=== PATIENT | male | born 1990 | race Caucasian/White ===

== ENCOUNTER 2018-10-08 13:06 | Emergency (ER) | payer BC ==
[2018-10-08] MEDS ORDERED: Albuterol/Ipratropium 3.0-0.5 MG/3 ML Neb Soln NEB ONE (13:08)
--- NOTE | 2018-10-08 13:09 | EDM.PDOC ---
ED HPI GENERAL MEDICAL PROBLEM - General Stated Complaint: FLU Time Seen by Provider: 10/08/18 13:07 Source of Information: Reports: Patient History Limitations: Reports: No Limitations - History of Present Illness INITIAL COMMENTS - FREE TEXT/NARRATIVE: HISTORY AND PHYSICAL: History of present illness: Patient is a 28-year-old male who presents to emergency room today with complaints of shortness of breath, pain with inspiration, fever, sore throat, vomiting, and diarrhea. Patient states that the worst symptom is shortness of breath and he feels as if he cannot take a deep enough breath without pain. Patient does smoke about a half a pack a day for the past 3 years. Patient states all the symptoms started 2 or 3 days ago and are progressively worsening. Patient states he has not checked his temperature at home but does feel as if he has a fever. Patient states that today he has had 3 episodes of watery diarrhea. Patient states he's had intermittent vomiting but none today. Patient denies abdominal pain, diaphoresis, cough, or all other GI, , respiratory, or cardiovascular complaints. Patient denies any health history. Review of systems: As per history of present illness and below otherwise all systems reviewed and negative. Past medical history: As per history of present illness and as reviewed below otherwise noncontributory. Surgical history: As per history of present illness and as reviewed below otherwise noncontributory. Social history: See social history for further information Family history: As per history of present illness and as reviewed below otherwise noncontributory. Physical exam: General: Patient is alert, oriented, and in no acute distress. He is sitting comfortably on exam table. HEENT: Atraumatic, normocephalic, pupils equal and reactive bilaterally, negative for conjunctival pallor or scleral icterus, mucous membranes dry, TMs normal bilaterally, throat is severely erythematous with enlarged tonsils without exudate, neck supple, nontender, trachea midline. No drooling or trismus noted. No meningeal signs. No hot potato voice noted. Lungs: Lung sounds are greatly diminished due to patient's pain with inspiration , therefore, lung exam limited due to pain. Otherwise, clear to auscultation, breath sounds equal bilaterally, chest nontender. Heart: S1S2, regular rate and rhythm without overt murmur Abdomen: Soft, nondistended, nontender. Negative for masses or hepatosplenomegaly. Negative for costovertebral tenderness. Pelvis: Stable nontender. Genitourinary: Deferred. Rectal: Deferred. Skin: Intact, warm, dry. No lesions or rashes noted. Extremities: Atraumatic, negative for cords or calf pain. Neurovascular unremarkable. Neuro: Awake, alert, oriented. Cranial nerves II through XII unremarkable. Cerebellum unremarkable. Motor and sensory unremarkable throughout. Exam nonfocal. Notes: On exam, patient's throat is quite erythematous, difficult examination of the lungs due to pain, and patient is oxygen as slightly on room air (93%). EKG was taken immediately upon arrival at the ED. DuoNeb was ordered. Additional labs and xray performed. Fluids were started and Toradol given. Patient is continually monitored. Patient is positive for influenza A. Rest of labs are unremarkable. Patient was not able to provide a urine or stool sample today in the ED, however, he was provided with the equipment to do this at home and to bring back. Patient declines the urine. Supportive care measures were reviewed and discussed. Voices understanding and is agreeable to plan of care. Denies any further questions or concerns at this time. Diagnostics: CBC, CMP, UA, stool studies, EKG, influenza, strep and chest x-ray. Therapeutics: Saline, Toradol, DuoNeb Prescription: phenergan with codeine, tamiflu, proair Impression: 1. Influenza A Plan: 1. Standard contact precautions (covering mouth while coughing, avoid sharing drinking cups and eating utensils). Please make sure you're doing good handwashing as this is contagious. 2. Please start the Tamiflu today, take as directed. Encourage small frequent sips of fluids to prevent dehydration. 3. Supportive care measures such as Tylenol and/or ibuprofen for pain and fever management. Phenergan with codeine as needed for moderate to severe pain/ coughing. This medication may cause drowsiness a do not take it will driving her needing to be functioning outside of the house. 4. Follow-up with your primary care provider in the next 1-2 days. Return to the ED as needed and as discussed. Definitive disposition and diagnosis as appropriate pending reevaluation and review of above. Chest Pain Score (Numeric/FACES): 7 - Related Data Allergies Allergy/AdvReac Type Severity Reaction Status Date / Time No Known Allergies Allergy Verified 10/08/18 13:09 Home Meds: Home Meds . [No Known Home Meds] 10/08/18 [History] Past Medical History - Past Health History Medical/Surgical History: Denies Medical/Surgical History HEENT History: Reports: None Cardiovascular History: Reports: None Respiratory History: Reports: None Gastrointestinal History: Reports: None Genitourinary History: Reports: None Musculoskeletal History: Reports: None Neurological History: Reports: None Psychiatric History: Reports: Depression Endocrine/Metabolic History: Reports: None Hematologic History: Reports: None Immunologic History: Reports: None Oncologic (Cancer) History: Reports: None Dermatologic History: Reports: None - Infectious Disease History Infectious Disease History: Reports: Chicken Pox - Past Surgical History Head Surgeries/Procedures: Reports: None HEENT Surgical History: Reports: None Cardiovascular Surgical History: Reports: None GI Surgical History: Reports: None Social & Family History - Family History Psychiatric: Reports: Anxiety ED ROS GENERAL - Review of Systems Review Of Systems: ROS reveals no pertinent complaints other than HPI. ED EXAM, GENERAL - Physical Exam Exam: See Below (See dictation) Course - Vital Signs Last Recorded V/S: Last Vital Signs Temp 97 F 10/08/18 13:10 Pulse 76 10/08/18 14:12 Resp 18 10/08/18 14:12 BP 120/75 10/08/18 14:12 Pulse Ox 98 10/08/18 14:12 - Orders/Labs/Meds Orders: Active Orders 24 hr Category Date Time Status EKG Documentation Completion [RC] STAT Care 10/08/18 13:18 Active RT Aerosol Therapy [RC] ASDIRECTED Care 10/08/18 13:08 Active CULTURE STOOL + CAMPY+SHIGATOX [RM] Stat Lab 10/08/18 13:16 Ordered CULTURE STREP A CONFIRMATION [RM] Stat Lab 10/08/18 13:50 Results STREP SCRN A RAPID W CULT CONF [RM] Stat Lab 10/08/18 13:50 Results UA RFX MAICO AND CULT IF INDIC [URIN] Stat Lab 10/08/18 13:16 Ordered Labs: Laboratory Tests 10/08/18 10/08/18 Range/Units 13:36 13:36 WBC 4.22 (4.0-11.0) K/uL RBC 5.09 (4.50-5.90) M/uL Hgb 15.7 (13.0-17.0) g/dL Hct 43.1 (38.0-50.0) % MCV 84.7 (80.0-98.0) fL MCH 30.8 (27.0-32.0) pg MCHC 36.4 (31.0-37.0) g/dL RDW Std Deviation 37.7 (28.0-62.0) fl RDW Coeff of Jodie 12 (11.0-15.0) % Plt Count 118 L (150-400) K/uL MPV 9.40 (7.40-12.00) fL Neut % (Auto) 78.0 (48.0-80.0) % Lymph % (Auto) 18.7 (16.0-40.0) % Josephine % (Auto) 2.8 (0.0-15.0) % Eos % (Auto) 0.0 (0.0-7.0) % Baso % (Auto) 0.5 (0.0-1.5) % Neut # (Auto) 3.3 (1.4-5.7) K/uL Lymph # (Auto) 0.8 (0.6-2.4) K/uL Josephine # (Auto) 0.1 (0.0-0.8) K/uL Eos # (Auto) 0.0 (0.0-0.7) K/uL Baso # (Auto) 0.0 (0.0-0.1) K/uL Nucleated RBC % 0.0 /100WBC Nucleated RBCs # 0 K/uL Sodium 135 L (136-148) mmol/L Potassium 3.4 L (3.5-5.1) mmol/L Chloride 100 (98-107) mmol/L Carbon Dioxide 25.8 (21.0-32.0) mmol/L BUN 14 (7.0-18.0) mg/dL Creatinine 1.2 (0.8-1.3) mg/dL Est Cr Clr Drug Dosing 100.59 mL/min Estimated GFR (MDRD) > 60.0 ml/min Glucose 117 H (74-106) mg/dL Calcium 8.5 (8.5-10.1) mg/dL Total Bilirubin 0.4 (0.2-1.0) mg/dL AST 45 H (15-37) IU/L ALT 49 (14-63) IU/L Alkaline Phosphatase 79 (46-116) U/L Total Protein 7.2 (6.4-8.2) g/dL Albumin 3.8 (3.4-5.0) g/dL Globulin 3.4 (2.6-4.0) g/dL Albumin/Globulin Ratio 1.1 (0.9-1.6) Meds: Medications Discontinued Medications Generic Name Dose Route Start Last Admin Trade Name Rosa PRN Reason Stop Dose Admin Albuterol/Ipratropium 3 ml 10/08/18 13:08 10/08/18 13:32 Duoneb 3.0-0.5 Mg/3 Ml NEB 10/08/18 13:09 3 ml ONETIME ONE Administration Sodium Chloride 1,000 mls @ 999 mls/hr 10/08/18 13:16 10/08/18 13:32 Normal Saline IV 10/08/18 14:16 999 mls/hr STAT ONE Administration Ketorolac Tromethamine 30 mg 10/08/18 13:17 10/08/18 13:32 Toradol IVPUSH 10/08/18 13:18 30 mg ONETIME ONE Administration Departure - Departure Time of Disposition: 14:11 Disposition: Home, Self-Care 01 Clinical Impression: Influenza A - Discharge Information Instructions: Influenza, Adult, [id number] Referrals: PCP,Unknown [Primary Care Provider] - Additional Instructions: The following information is given to patients seen in the emergency department who are being discharged to home. This information is to outline your options for follow-up care. We provide all patients seen in our emergency department with a follow-up referral. The need for follow-up, as well as the timing and circumstances, are variable depending upon the specifics of your emergency department visit. If you don't have a primary care physician on staff, we will provide you with a referral. We always advise you to contact your personal physician following an emergency department visit to inform them of the circumstance of the visit and for follow-up with them and/or the need for any referrals to a consulting specialist. The emergency department will also refer you to a specialist when appropriate. This referral assures that you have the opportunity for follow-up care with a specialist. All of these measure are taken in an effort to provide you with optimal care, which includes your follow-up. Under all circumstances we always encourage you to contact your private physician who remains a resource for coordinating your care. When calling for follow-up care, please make the office aware that this follow-up is from your recent emergency room visit. If for any reason you are refused follow-up, please contact the [facility] Emergency Department at and asked to speak to the emergency department charge nurse. [facility] [address] [place] [id number] [facility] [address] [place] [id number] 1. Standard contact precautions (covering mouth while coughing, avoid sharing drinking cups and eating utensils). Please make sure you're doing good handwashing as this is contagious. 2. Please start the Tamiflu today, take as directed. Encourage small frequent sips of fluids to prevent dehydration. 3. Supportive care measures such as Tylenol and/or ibuprofen for pain and fever management. Phenergan with codeine as needed for moderate to severe pain/ coughing. This medication may cause drowsiness a do not take it will driving her needing to be functioning outside of the house. 4. Follow-up with your primary care doctor in the next 1-2 days. Return to the ED as needed and as discussed. - My Orders Last 24 Hours: My Active Orders 10/08/18 13:08 RT Aerosol Therapy [RC] ASDIRECTED 10/08/18 13:16 CULTURE STOOL + CAMPY+SHIGATOX [RM] Stat UA RFX MAICO AND CULT IF INDIC [URIN] Stat 10/08/18 13:18 EKG Documentation Completion [RC] STAT 10/08/18 13:50 CULTURE STREP A CONFIRMATION [RM] Stat STREP SCRN A RAPID W CULT CONF [RM] Stat - Assessment/Plan Last 24 Hours: My Active Orders 10/08/18 13:08 RT Aerosol Therapy [RC] ASDIRECTED 10/08/18 13:16 CULTURE STOOL + CAMPY+SHIGATOX [RM] Stat UA RFX MAICO AND CULT IF INDIC [URIN] Stat 10/08/18 13:18 EKG Documentation Completion [RC] STAT 10/08/18 13:50 CULTURE STREP A CONFIRMATION [RM] Stat STREP SCRN A RAPID W CULT CONF [RM] Stat
[2018-10-08] MEDS ORDERED: Sodium Chloride 0.9% 1,000 ML IV ONE (13:16)
[2018-10-08] MEDS ORDERED: Ketorolac 30 MG/ML SDV IVPUSH ONE (13:17)
[2018-10-08 14:11] LABS: CHLORIDE,CL 100 mmol/L (98-107); SODIUM,NA 135 mmol/L (136-148)
--- NOTE | 2018-10-08 14:31 | CR ---
EXAMINATION: Two-view chest (PA and Lateral views). HISTORY: Shortness of breath. FINDINGS: The trachea is midline. The cardiomediastinal silhouette is within normal limits. No pulmonary infiltrates, effusions or pneumothorax. Osseous structures appear unremarkable. IMPRESSION: No acute cardiopulmonary process.
[2018-10-08 15:11] VITALS: BP 105/72
== END 2018-10-08 15:11 | disposition home or self-care (01) ==
LOC: MW.ED 13:06
DX: J10.1 Influenza due to other identified influenza virus with other respiratory manifestations (principal)
CPT/HCPCS: 36415; 71046; 80053; 85025; 87081; 87804; 87880; 93005; 94640; 96361; 96374; 99284; J1885; J7040; J7620-GY

== ENCOUNTER 2019-10-20 09:29 | Emergency (ER) | payer SELFPAY ==
[2019-10-20 09:45] VITALS: BP 126/76; PULSE 98
--- NOTE | 2019-10-20 10:17 | CR ---
Chest: 2 views of the chest were obtained. Comparison: Prior chest x-ray of 10/08/18. Heart size and mediastinum are normal. Less inspiratory effort is seen on current chest x-ray than previous which causes some increased lung markings. Possible mild right-sided bronchitis is present. Lungs otherwise are clear with no acute alveolar densities. Bony structures are unremarkable. Impression: 1. Possible mild right-sided bronchitis. 2. Other findings which are felt to be nonacute as noted above. Diagnostic code #3 This report was dictated in Mountain Standard Time
--- NOTE | 2019-10-20 10:26 | EDM.PDOC ---
ED HPI GENERAL MEDICAL PROBLEM - General Chief Complaint: Eye Problems Stated Complaint: PINK EYE Time Seen by Provider: 10/20/19 09:47 Source of Information: Reports: Patient History Limitations: Reports: No Limitations - History of Present Illness INITIAL COMMENTS - FREE TEXT/NARRATIVE: Pt presents with 3 days of sorethroat and cough. Pt also developed right eye redness overnight associated with runny discharge. Pt denies trauma. No fever. No other symptoms tonsils/throat Pain Score (Numeric/FACES): 10 - Related Data Allergies Allergy/AdvReac Type Severity Reaction Status Date / Time No Known Allergies Allergy Verified 10/20/19 09:44 Home Meds: Home Meds Doxycycline [Vibramycin] 100 mg PO BID 7 Days #14 cap 10/20/19 [Rx] Erythromycin Base [Erythromycin 0.5% Ophth Oint] 1 applic OP Q4H 5 Days #1 tube 10/20/19 [Rx] Past Medical History - Past Health History Medical/Surgical History: Denies Medical/Surgical History HEENT History: Reports: None Cardiovascular History: Reports: None Respiratory History: Reports: None Gastrointestinal History: Reports: None Genitourinary History: Reports: None Musculoskeletal History: Reports: None Neurological History: Reports: None Psychiatric History: Reports: Depression Endocrine/Metabolic History: Reports: None Hematologic History: Reports: None Immunologic History: Reports: None Oncologic (Cancer) History: Reports: None Dermatologic History: Reports: None - Infectious Disease History Infectious Disease History: Reports: Chicken Pox - Past Surgical History Head Surgeries/Procedures: Reports: None HEENT Surgical History: Reports: None Cardiovascular Surgical History: Reports: None GI Surgical History: Reports: None Social & Family History - Family History Family Medical History: Noncontributory Psychiatric: Reports: Anxiety - Tobacco Use Smoking Status *Q: Current Every Day Smoker Years of Tobacco use: 4 Packs/Tins Daily: 0.5 - Caffeine Use Caffeine Use: Reports: Coffee - Recreational Drug Use Recreational Drug Use: No ED ROS GENERAL - Review of Systems Review Of Systems: See Below Constitutional: Reports: Malaise, Fatigue HEENT: Reports: Eye Discharge, Eye Pain, Throat Pain Respiratory: Denies: Shortness of Breath, Wheezing Cardiovascular: Reports: No Symptoms GI/Abdominal: Reports: No Symptoms Musculoskeletal: Reports: No Symptoms Skin: Reports: No Symptoms Neurological: Reports: No Symptoms ED EXAM GENERAL W FULL EYE - Physical Exam Exam: See Below Exam Limited By: No Limitations General Appearance: Alert, WD/WN, No Apparent Distress Eye Exam: Right Eye: Conjunctival Injection, Bilateral Eye: EOMI, PERRL Extraocular Movements: Bilateral: Intact Comments: Fluorecin exam of the right eye negative for any abrasion or sidel sign Throat/Mouth: Other (mild erythema) Head: Atraumatic, Normocephalic Neck: Normal Inspection, Full Range of Motion Respiratory/Chest: No Respiratory Distress, Lungs Clear, Normal Breath Sounds, No Accessory Muscle Use Cardiovascular: Regular Rate, Rhythm, No Murmur GI/Abdominal: Soft, Non-Tender, No Distention Extremities: Normal Inspection Neurological: Normal Cognition, Normal Gait Skin Exam: Warm, Dry, Intact Course - Vital Signs Last Recorded V/S: Last Vital Signs Temp 98.5 F 10/20/19 09:42 Pulse 98 10/20/19 09:42 Resp 16 10/20/19 09:42 BP 126/76 10/20/19 09:42 Pulse Ox 96 10/20/19 09:42 - Orders/Labs/Meds Orders: Active Orders 24 hr Category Date Time Status CULTURE STREP A CONFIRMATION [] Stat Lab 10/20/19 09:50 Results STREP SCRN A RAPID W CULT CONF [] Stat Lab 10/20/19 09:50 Results Meds: Medications Discontinued Medications Generic Name Dose Route Start Last Admin Trade Name Rosa PRN Reason Stop Dose Admin Dexamethasone 10 mg 10/20/19 10:43 Dexamethasone IM 10/20/19 10:44 ONETIME ONE Dexamethasone 10 mg 10/20/19 11:00 Dexamethasone PO 10/20/19 11:01 ONETIME ONE Dexamethasone 10 mg 10/20/19 10:51 10/20/19 10:59 Dexamethasone PO 10/20/19 10:52 10 mg ONETIME ONE Administration Tetracaine HCl 1 ml 10/20/19 10:32 10/20/19 10:35 Tetracaine 0.5% Steri-Unit Lillie EYERT 10/20/19 10:33 1 ml ASDIRECTED ONE Administration - Re-Assessments/Exams Free Text/Narrative Re-Assessment/Exam: 10/20/19 11:07 VS wnl and PE shows right conjunctivitis. Work up shows bronchitis. Erythromycin and doxycycline prescribed. Pt comfortable with discharge. Strict return precautions discussed should symptoms worsen or any concerns arise. Departure - Departure Time of Disposition: 11:11 Disposition: Home, Self-Care 01 Condition: Good Clinical Impression: Conjunctivitis, Bronchitis - Discharge Information *PRESCRIPTION DRUG MONITORING PROGRAM REVIEWED*: Not Applicable *COPY OF PRESCRIPTION DRUG MONITORING REPORT IN PATIENT GARRY: Not Applicable Instructions: Upper Respiratory Infection, Adult, [id number], Bacterial Conjunctivitis, [id number] Referrals: PCP,None [Primary Care Provider] - Forms: ED Department Discharge Additional Instructions: My general discharge The following information is given to patients seen in the emergency department who are being discharged to home. This information is to outline your options for follow-up care. We provide all patients seen in our emergency department with a follow-up referral. The need for follow-up, as well as the timing and circumstances, are variable depending upon the specifics of your emergency department visit. If you don't have a primary care physician on staff, we will provide you with a referral. We always advise you to contact your personal physician following an emergency department visit to inform them of the circumstance of the visit and for follow-up with them and/or the need for any referrals to a consulting specialist. The emergency department will also refer you to a specialist when appropriate. This referral assures that you have the opportunity for follow-up care with a specialist. All of these measure are taken in an effort to provide you with optimal care, which includes your follow-up. Under all circumstances we always encourage you to contact your private physician who remains a resource for coordinating your care. When calling for follow-up care, please make the office aware that this follow-up is from your recent emergency room visit. If for any reason you are refused follow-up, please contact the [facility] Emergency Department at and asked to speak to the emergency department charge nurse. Sepsis Event Note - Evaluation Sepsis Screening Result: No Definite Risk - Focused Exam Vital Signs: Vital Signs Temp Pulse Resp BP Pulse Ox 10/20/19 09:42 98.5 F 98 16 126/76 96 Date Exam was Performed: 10/20/19 Time Exam was Performed: 11:06 - My Orders Last 24 Hours: My Active Orders 10/20/19 09:50 CULTURE STREP A CONFIRMATION [] Stat STREP SCRN A RAPID W CULT CONF [] Stat - Assessment/Plan Last 24 Hours: My Active Orders 10/20/19 09:50 CULTURE STREP A CONFIRMATION [RM] Stat STREP SCRN A RAPID W CULT CONF [RM] Stat
[2019-10-20] MEDS ORDERED: Tetracaine HCl/PF 0.5% 4 ML Bottle EYERT ONE (10:32)
[2019-10-20] MEDS ORDERED: Dexamethasone 10 MG/ML SDV IM ONE (10:43)
[2019-10-20] MEDS ORDERED: Dexamethasone 10 MG/ML SDV PO ONE (10:51)
== END 2019-10-20 11:28 | disposition home or self-care (01) ==
LOC: MW.ED 09:29
DX: H10.9 Unspecified conjunctivitis (principal); J40 Bronchitis, not specified as acute or chronic; F17.210 Nicotine dependence, cigarettes, uncomplicated
CPT/HCPCS: 71046; 87081; 87880; 99283; J1100